=== PATIENT | female | born 2000 | race Caucasian/White ===

== ENCOUNTER 2025-06-12 12:42 | Emergency (ER) | payer OTHER ==
[~2025-06-12] VITALS: Ht 154.9 cm; Wt 56.0 kg
[2025-06-12 12:55] VITALS: O2SAT 98
[2025-06-12] MEDS: IBUPROFEN 400MG TABLET PO ONE (14:58)
[2025-06-12 16:53] VITALS: BP 122/68; PULSE 71; RESP 18; TEMP 36.7; O2SAT 100
== END 2025-06-12 16:56 | disposition home or self-care (01) ==
LOC: ER 12:42
DX: S00.93XA Contusion of unspecified part of head, initial encounter (principal); R42 Dizziness and giddiness; X58.XXXA Exposure to other specified factors, initial encounter; Y93.89 Activity, other specified; Y92.89 Other specified places as the place of occurrence of the external cause; Y99.8 Other external cause status
CPT/HCPCS: 81025; 99284